=== PATIENT | male | born 1995 | race African-American/Black ===

== ENCOUNTER → 2020-07-07 | Outpatient (CLI) | payer OTHER ==
[~2020-07-07] MED LIST: BUDESONIDE EC3 MG PO; COLACE 100 MG100 MG PO; IBUPROFEN200 M1 PO; MIRALAX119 GM PO
== END ==
LOC: LAB 13:57
PROVIDERS: ATTEND Internal Medicine Gastroenterology
DX: Z01.812 Encounter for preprocedural laboratory examination (principal); Z20.822 Contact with and (suspected) exposure to COVID-19

== ENCOUNTER → 2020-07-12 | Outpatient (CLI) | payer OTHER ==
[~2020-07-12] VITALS: Ht 182.9 cm; Wt 74.4 kg
--- NOTE | 2020-07-18 18:31 | PATH ---
[facility] [address] [address] PATHOLOGY RPT PROCEDURE Name: JT FUENTES Room #: [facility] M.R.#: [id number] Admission: 07/12/20 Date of : 89 Discharge: Report #: [id number] Path Case #: [id number] [facility] Accession Number: [id number] . 01 Material submitted: . PART A: cecum - ILEOCECAL PART B: hepatic flexure - BIOPSY CECUM TO HEPATIC FLEXURE PART C: rectum - BIOPSY DESCENDING TO RECTUM . 01 Clinical history: . CROHN'S ILEAL COLONIC CROHN'S . 02 Diagnosis: A. Small bowel mucosa, ileocecal, endoscopic biopsy: - Moderate to marked active gastritis, compatible with the provided history of Crohn's disease. - Negative for dysplasia or malignancy. . B. Large intestine mucosa, cecum to hepatic flexure, endoscopic biopsy: - Moderate to marked active gastritis, compatible with the provided history of Crohn's disease. - Negative for dysplasia or malignancy. . C. Large intestinal mucosa, descending to rectum, endoscopic biopsy: - Mild to moderate active gastritis, history of Crohn's disease. - Negative for dysplasia or malignancy. (IUV:pit 07/18/2020) QTP 07/18/2020 1225 Local . 02 Electronically signed: . Elba Licona MD, Pathologist NPI- [id number] . 01 Gross description: . A. The specimen is received in formalin, labeled "Jt Donna, biopsy ileocecal". Received are two segments of pale vergara tissue measuring 0.2 and 0.3 cm in maximum dimensions. The specimen is submitted entirely in cassette A1. . B. The specimen is received in formalin, labeled "Jt Donna, cecum to hepatic flexure". Received are three segments of pale vergara tissue ranging in size from 0.3-0.4 cm in maximum dimensions. The specimen is submitted entirely in cassette B1. . C. The specimen is received in formalin, labeled "Jt Donna, biopsy descending to rectum". Received is a segment of pale vergara tissue measuring 0.7 cm in maximum dimensions. The [place] [address] PATHOLOGY RPT PROCEDURE Name: JT FUENTES Room #: REG [facility] [place]#: [id number] Admission: 07/12/20 Date of : 89 Discharge: Report #: [id number] Path Case #: [id number] cassette C1. (CAA; 07/15/2020) QAC/QAC 07/15/2020 1817 Local . 02 Pathologist provided ICD-10: K29.70 . 02 CPT . 612969, 094335, 102428 Specimen Comment: A courtesy copy of this report has been sent to [phone] Specimen Comment: Report sent to Performed at: [address], [place] [id number] MD Kalen Bose MD Phone: [phone] Performed at: [address] [id number] MD Elba Licona MD Phone: [phone]
== END | disposition home or self-care (01) ==
LOC: GI 08:16
PROVIDERS: ATTEND Internal Medicine Gastroenterology
DX: K50.812 Crohn's disease of both small and large intestine with intestinal obstruction (principal); K50.813 Crohn's disease of both small and large intestine with fistula; J45.909 Unspecified asthma, uncomplicated; Z98.890 Other specified postprocedural states; Z79.899 Other long term (current) drug therapy
CPT/HCPCS: 62110; 62900

== ENCOUNTER → 2020-07-27 | Outpatient (CLI) | payer OTHER | LOC: RAD 09:45 | PROVIDERS: ATTEND Internal Medicine Gastroenterology | DX: K50.911 Crohn's disease, unspecified, with rectal bleeding (principal); R19.5 Other fecal abnormalities ==

== ENCOUNTER 2020-08-29 17:51 | Emergency (ER) | payer OTHER ==
[~2020-08-29] VITALS: Ht 182.9 cm; Wt 73.5 kg
[2020-08-29 19:42] LABS: HEMATOCRIT 24.6 % (42.0-52.0); HEMOGLOBIN 7.5 gm/dL (14.0-18.0); MCH 20.9 pg (26.0-34.0); MCHC 30.6 g/dL (28.0-37.0); MCV 68.3 fL (80.0-100.0); PLATELET COUNT 665 thou/uL (150-400); RDW 16.1 % (10.5-14.5); WBC 8.1 thou/uL (4.0-11.0)
[2020-08-29 19:50] LABS: CALCIUM 8.2 mg/dL (8.5-10.1); CREATININE 0.7 mg/dL (0.7-1.3); POTASSIUM 4.1 mmol/L (3.5-5.1)
[2020-08-29 19:56] LABS: ALBUMIN 2.1 g/dL (3.4-5.0); TOTAL BILIRUBIN 0.2 mg/dL (0.2-1.0); TOTAL PROTEIN 6.5 g/dL (6.4-8.2)
[2020-08-29 20:13] LABS: ABSOLUTE NEUTROPHILS 5.5 thou/uL (1.4-8.2)
[2020-08-29 20:14] LABS: ANISOCYTOSIS 1+; HYPOCHROMASIA 1+; MICROCYTES 1+
[2020-08-29 20:27] LABS: APTT 29.4 Seconds (24.5-32.8); INR 1.1; PROTIME 11.9 Seconds (9.3-11.4)
[2020-08-29] MEDS ORDERED: CLEOCIN HCL150 MG PO (21:40)
[2020-08-29 22:00] VITALS: BP 103/73
== END 2020-08-29 22:01 | disposition home or self-care (01) ==
LOC: ER 17:51
PROVIDERS: Emergency Medicine
DX: L02.31 Cutaneous abscess of buttock (principal); D50.8 Other iron deficiency anemias; J45.909 Unspecified asthma, uncomplicated

== ENCOUNTER → 2020-09-14 | Outpatient (CLI) | payer OTHER ==
[~2020-09-14] MED LIST changes: +CLEOCIN HCL150 MG PO
[2020-09-14 15:58] LABS: ABSOLUTE NEUTROPHILS 2.9 thou/uL (1.4-8.2); BASOPHILS 0.5 % (0.0-2.0); EOSINOPHILS 1.3 % (0.0-3.0); HEMATOCRIT 26.8 % (42.0-52.0); HEMOGLOBIN 8.6 gm/dL (14.0-18.0); LYMPHOCYTES 31.4 % (24.0-44.0); MCH 22.5 pg (26.0-34.0); MCHC 32.1 g/dL (28.0-37.0); MONOCYTES 11.3 % (1.0-8.0); PLATELET COUNT 445 thou/uL (150-400); POLYS 55.5 % (36.0-66.0); RBC 3.83 mil/uL (4.50-6.00); RDW 20.1 % (10.5-14.5); WBC 5.3 thou/uL (4.0-11.0)
== END ==
LOC: LAB 15:15
PROVIDERS: ATTEND Surgery
DX: K50.10 Crohn's disease of large intestine without complications (principal)

== ENCOUNTER 2020-12-20 18:06 | Emergency (ER) | payer OTHER ==
[~2020-12-20] VITALS: Ht 182.9 cm; Wt 94.8 kg
[2020-12-20 18:51] LABS: ABSOLUTE NEUTROPHILS 2.6 thou/uL (1.4-8.2); BASOPHILS 0.6 % (0.0-2.0); HEMOGLOBIN 11.3 gm/dL (14.0-18.0); LYMPHOCYTES 38.8 % (24.0-44.0); MCH 24.3 pg (26.0-34.0); MCHC 32.2 g/dL (28.0-37.0); MCV 75.5 fL (80.0-100.0); MONOCYTES 9.9 % (1.0-8.0); PLATELET COUNT 300 thou/uL (150-400); POLYS 48.7 % (36.0-66.0); RBC 4.64 mil/uL (4.50-6.00); RDW 19.5 % (10.5-14.5); WBC 5.3 thou/uL (4.0-11.0)
[2020-12-20 18:55] LABS: CALCIUM 8.5 mg/dL (8.5-10.1); CREATININE 0.9 mg/dL (0.7-1.3); POTASSIUM 3.9 mmol/L (3.5-5.1)
[2020-12-20 19:02] LABS: ALBUMIN 3.6 g/dL (3.4-5.0); TOTAL BILIRUBIN 0.4 mg/dL (0.2-1.0); TOTAL PROTEIN 7.5 g/dL (6.4-8.2)
[2020-12-20 21:29] VITALS: BP 94/58
== END 2020-12-20 21:29 | disposition home or self-care (01) ==
LOC: ER 18:06
PROVIDERS: Emergency Medicine
DX: K92.1 Melena (principal); K62.89 Other specified diseases of anus and rectum; J45.909 Unspecified asthma, uncomplicated; Z98.890 Other specified postprocedural states